=== PATIENT | male | born 1950 | race Caucasian/White ===

== ENCOUNTER 2017-04-26 17:13 | Emergency (ER) | payer OTHER ==
[~2017-04-26] VITALS: Ht 167.6 cm; Wt 62.0 kg
[~2017-04-26 17:13] MED LIST: AMOX1TAB64 PO; ATOR10TA9 PO; HYDR-3342 PO; LACT1CAP24 PO; LISI-167 PO; METF500T4 PO; OXYC5TAB3 PO; SITA50TA PO; TRAM50TA2 PO; UMEC1DIS INH
[2017-04-26] MEDS ORDERED: SODIUM CHLORIDE 0.9% 1,000 ML IV ONE (17:26)
[2017-04-26] MEDS ORDERED: ASPIRIN 81 MG TABLET CHEW PO ONE (17:30)
[2017-04-26] MEDS ORDERED: SODIUM CHLORIDE FLUSH 10ML SYR IVF ONE (17:30)
[2017-04-26] MEDS ORDERED: SODIUM CHLORIDE 0.9% 1,000ML IVBOLUS ONE ×2 (17:30→18:30)
[2017-04-26] MEDS ORDERED: ASPIRIN 81 MG TABLET CHEW ONE (18:02)
[2017-04-26 18:11] LABS: ASPARTATE AMINO TRANSFERASE 16 U/L (15-37); BLOOD UREA NITROGEN 19 mg/dL (7-18)
[2017-04-26 18:16] LABS: IS PT STATUS REG ER OR PRE ER? YES
[2017-04-26 19:24] VITALS: BP 104/59
== END 2017-04-26 19:34 | disposition home or self-care (01) ==
LOC: ED 17:39
DX: I95.2 Hypotension due to drugs (principal); R07.89 Other chest pain; E11.9 Type 2 diabetes mellitus without complications; E78.5 Hyperlipidemia, unspecified; Z90.49 Acquired absence of other specified parts of digestive tract; F17.200 Nicotine dependence, unspecified, uncomplicated
CPT/HCPCS: 36415; 71010; 80053; 83605; 83690; 84484; 85025; 93005; 96360; 96361; 99285; J7030

== ENCOUNTER 2017-05-20 12:49 | Inpatient (IN) | payer OTHER ==
[~2017-05-20] VITALS: Ht 167.6 cm; Wt 64.0 kg
[2017-05-20] MEDS ORDERED: LISI2.5T PO (12:59)
[2017-05-20] MEDS ORDERED: TRAM50TA2 PO (12:59)
[2017-05-20] MEDS ORDERED: SODIUM CHLORIDE 0.9% 1,000ML IVBOLUS ONE ×2 (13:00→15:00)
[2017-05-20] MEDS ORDERED: SODIUM CHLORIDE FLUSH 10ML SYR IVF ONE (13:00)
[2017-05-20 13:24] LABS: BLOOD UREA NITROGEN 14 mg/dL (7-18)
[2017-05-20 13:30] LABS: ASPARTATE AMINO TRANSFERASE 21 U/L (15-37)
[2017-05-20 13:31] LABS: IS PT STATUS REG ER OR PRE ER? YES
[2017-05-20] MEDS ORDERED: SODIUM CHLORIDE 0.9%, 500ML IVBOLUS ONE (14:00)
[2017-05-20] MEDS ORDERED: POLYETHYLENE GLYCOL 17 GM PACKET PO PRN (17:00)
[2017-05-20] MEDS ORDERED: DOCUSATE 100 MG CAPSULE PO PRN (17:00)
[2017-05-20] MEDS ORDERED: LABETALOL 5MG/ML 40ML VIAL IVPush PRN (17:00)
[2017-05-20] MEDS ORDERED: ONDANSETRON 2MG/ML, 2ML IVPush PRN (17:00)
[2017-05-20] MEDS ORDERED: morphine SULFATE 10 MG/ML, 1ML IVPush PRN (17:00)
[2017-05-20] MEDS ORDERED: HYDROcodone/APAP 5/325 TABLET PO PRN (17:00)
[2017-05-20] MEDS ORDERED: BISACODYL 10 MG SUPP PR PRN (17:00)
[2017-05-20] MEDS ORDERED: ACETAMINOPHEN 325 MG TABLET PO PRN (17:00)
[2017-05-20] MEDS ORDERED: UMEC1DIS INH (17:52)
[2017-05-20] MEDS ORDERED: ENOXAPARIN 40 MG/0.4 ML SQ SCH (18:00)
[2017-05-20] MEDS: SODIUM CHLORIDE 0.9% 1,000 ML IV SCH (18:00)
[2017-05-20 18:02] VITALS: BP 94/58
[2017-05-20 19:19] VITALS: BP_SYST 101; BP_SYST 102; BP_SYST 107; BP_DIAS 60; BP_DIAS 64; BP_DIAS 66
[2017-05-20] MEDS ORDERED: NICOTINE 14MG/24 HR PATCH.TD24 TD SCH (20:30)
[2017-05-20] MEDS: metFORMIN 500 MG TABLET PO SCH (21:09)
[2017-05-21 02:07] VITALS: BP_SYST 108; BP_SYST 121; BP_DIAS 68; BP_DIAS 72; BP_DIAS 75
[2017-05-21] MEDS: SODIUM CHLORIDE 0.9% 1,000 ML IV SCH (04:39)
[2017-05-21 06:22] LABS: BLOOD UREA NITROGEN 16 mg/dL (7-18)
[2017-05-21 06:23] LABS: ASPARTATE AMINO TRANSFERASE 15 U/L (15-37)
[2017-05-21 07:39] VITALS: BP_SYST 105; BP_SYST 114; BP_SYST 124; BP_DIAS 70; BP_DIAS 74; BP_DIAS 77
[2017-05-21] MEDS ORDERED: SITAGLIPTIN 50MG TABLET PO SCH (09:00)
[2017-05-21] MEDS: metFORMIN 500 MG TABLET PO SCH (09:39)
== END 2017-05-21 12:43 | disposition home or self-care (01) | DRG 315 ==
LOC: ED 15:41 → EDIP 16:46 → 4EST 17:30
PROVIDERS: ADMIT Internal Medicine; ATTEND Internal Medicine
DX: I95.9 Hypotension, unspecified (principal); R17 Unspecified jaundice; E11.65 Type 2 diabetes mellitus with hyperglycemia; E78.5 Hyperlipidemia, unspecified; I11.9 Hypertensive heart disease without heart failure; D72.829 Elevated white blood cell count, unspecified; Z72.0 Tobacco use; Z79.84 Long term (current) use of oral hypoglycemic drugs; Z90.49 Acquired absence of other specified parts of digestive tract; Z95.0 Presence of cardiac pacemaker; Z98.42 Cataract extraction status, left eye; Z98.41 Cataract extraction status, right eye; T46.4X5A Adverse effect of angiotensin-converting-enzyme inhibitors, initial encounter
CPT/HCPCS: 36415; 71010; 80053; 81003; 82607; 82746; 82962; 83690; 83735; 83880; 84443; 84484; 85025; 85610; 85730; 93005; 93880; 96360; 96361; J1650; J7030; J7040

== ENCOUNTER 2017-11-10 20:43 | Emergency (ER) | payer OTHER ==
[~2017-11-10] VITALS: Ht 167.6 cm; Wt 71.6 kg
[~2017-11-10 20:43] MED LIST changes: +LISI2.5T PO
[2017-11-10 20:48] VITALS: BP 132/71
[2017-11-10 21:50] LABS: ALANINE AMINOTRANSFERASE 19 U/L (12-78); ALBUMIN 3.5 g/dL (3.4-5.0); ANION GAP 7 mmol/L (5-15); CALCIUM 8.8 mg/dL (8.5-10.1); CHLORIDE 109 mmol/L (98-107); CREATININE 0.92 mg/dL (0.7-1.3)
[2017-11-10 21:53] LABS: ALKALINE PHOSPHATASE 84 U/L (45-117); BILIRUBIN,TOTAL 0.5 mg/dL (0.2-1.0); TOTAL PROTEIN 6.9 g/dL (6.4-8.2)
== END 2017-11-11 00:44 | disposition left against medical advice (07) ==
LOC: ED 21:46
DX: R10.11 Right upper quadrant pain (principal)
CPT/HCPCS: 36415; 80053; 83690; 99284

== ENCOUNTER → 2017-12-13 | Outpatient (CLI) | payer OTHER | END | disposition home or self-care (01) | LOC: CFH 09:14 | PROVIDERS: ATTEND Nurse Practitioner Primary Care | DX: N28.1 Cyst of kidney, acquired (principal); I10 Essential (primary) hypertension; E55.9 Vitamin D deficiency, unspecified; M25.512 Pain in left shoulder; M54.9 Dorsalgia, unspecified; J44.0 Chronic obstructive pulmonary disease with (acute) lower respiratory infection; I25.10 Atherosclerotic heart disease of native coronary artery without angina pectoris; R53.83 Other fatigue; D72.829 Elevated white blood cell count, unspecified; R23.4 Changes in skin texture | CPT/HCPCS: 76700 ==

== ENCOUNTER 2018-08-14 21:05 | Observation (INO) | payer OTHER ==
[~2018-08-14] VITALS: Ht 167.6 cm; Wt 66.8 kg
[~2018-08-14 21:05] MED LIST changes: +METF500T17 PO; -METF500T4 PO
[2018-08-14] MEDS ORDERED: ALBU0.63 NEB (21:17)
[2018-08-14] MEDS ORDERED: LISI2.5T PO (21:18)
[2018-08-14 22:20] LABS: BASOPHILS # (AUTO) 0.03 x10^3/uL (0-0.1); BASOPHILS % (AUTO) 0 % (0-1); EOSINOPHILS # (AUTO) 0.53 x10^3/uL (0-0.4); EOSINOPHILS % (AUTO) 4 % (1-7); LYMPHOCYTES # (AUTO) 2.78 x10^3/uL (1-3.4); LYMPHOCYTES % (AUTO) 22 % (22-44); MD NO; MEAN CORPUSCULAR HEMOGLOBIN 31.9 pg (27.5-34.5); MEAN CORPUSCULAR HGB CONC 34.1 g/dL (33.2-36.2); MEAN CORPUSCULAR VOLUME 93.5 fL (81-97); MONOCYTES % (AUTO) 6 % (2-9); NEUTROPHILS # (AUTO) 8.57 x10^3/uL (1.8-6.8); NEUTROPHILS % (AUTO) 67 % (42-75); PLATELET COUNT 274 x10^3/uL (130-400); RED BLOOD COUNT 5.57 x10^6/uL (4.38-5.82); RED CELL DISTRIBUTION WIDTH 13.9 % (9.4-14.8)
[2018-08-14 22:33] LABS: ALBUMIN 3.6 g/dL (3.4-5.0); ANION GAP 8 mmol/L (5-15); CALCIUM 9.1 mg/dL (8.5-10.1); CHLORIDE 109 mmol/L (98-107); CREATININE 0.98 mg/dL (0.7-1.3)
[2018-08-14 22:36] LABS: TROPONIN I 0.039 ng/mL (0.000-0.045)
[2018-08-15] MEDS ORDERED: ASPIRIN 81 MG TABLET CHEW PO ONE (01:00)
[2018-08-15] MEDS ORDERED: ASPIRIN 81 MG TABLET EC ONE (01:20)
[2018-08-15] MEDS ORDERED: hydrALAzine 20 MG/ML, 1ML IVPush PRN (02:00)
[2018-08-15] MEDS ORDERED: ALBUTEROL SULFATE 2.5 MG/3 ML NPPB PRN (02:00)
[2018-08-15] MEDS ORDERED: BISACODYL 10 MG SUPP PR PRN (02:00)
[2018-08-15] MEDS ORDERED: POLYETHYLENE GLYCOL 17 GM PACKET PO PRN (02:00)
[2018-08-15] MEDS ORDERED: LABETALOL 5MG/ML, 20ML IVPush PRN (02:00)
[2018-08-15] MEDS ORDERED: ACETAMINOPHEN 325 MG TABLET PO PRN (02:00)
[2018-08-15] MEDS ORDERED: FLUTICASONE/VILANTEROL 200-25MCG/INH INH SCH (02:00)
[2018-08-15] MEDS ORDERED: NICOTINE 14MG/24 HR PATCH.TD24 TD SCH (02:00)
[2018-08-15] MEDS ORDERED: NITROGLYCERIN 0.4 MG BOTTLE (25 TABS) SL PRN (02:00)
[2018-08-15] MEDS ORDERED: ONDANSETRON 2MG/ML, 2ML IVPush PRN (02:00)
[2018-08-15] MEDS ORDERED: FUROSEMIDE 20 MG/2 ML IV ONE (02:00)
[2018-08-15] MEDS ORDERED: PROMETHAZINE 25 MG/ML, 1ML IM PRN (02:00)
[2018-08-15] MEDS ORDERED: DOCUSATE 100 MG CAPSULE PO PRN (02:00)
[2018-08-15] MEDS ORDERED: ONDANSETRON ODT 4 MG PO PRN (02:00)
[2018-08-15] MEDS ORDERED: morphine SULFATE 10 MG/ML, 1ML IVPush PRN (02:00)
[2018-08-15 02:09] VITALS: BP 146/81
[2018-08-15 02:32] LABS: FREE T4 (FREE THYROXINE) 1.01 ng/dL (0.76-1.46); THYROID STIMULATING HORMONE 1.16 mIU/L (0.358-3.740)
[2018-08-15 02:44] LABS: HEMOGLOBIN A1C 5.9 % (4.2-6.3)
[2018-08-15] MEDS: HEPARIN 5,000 UNITS/ML, 1ML SQ SCH ×2 (03:51→08:15)
[2018-08-15 04:56] LABS: MICROSCOPIC AUTO
[2018-08-15 05:22] LABS: CULTURE INDICATED? NO
[2018-08-15] MEDS ORDERED: ASPIRIN 325 MG TABLET EC PO SCH (06:00)
[2018-08-15 06:27] LABS: TROPONIN I 0.023 ng/mL (0.000-0.045)
[2018-08-15 07:32] VITALS: BP 128/83
[2018-08-15] MEDS: INSULIN LISPRO 100 UNITS/ML, PEN SQ-INSULIN SCH ×2 (08:13→11:00)
[2018-08-15] MEDS ORDERED: LISINOPRIL 5 MG TABLET PO SCH (09:00)
[2018-08-15] MEDS ORDERED: REGADENOSON 0.4 MG/5 ML SYRINGE ONE (10:06)
[2018-08-15 12:46] LABS: TROPONIN I 0.023 ng/mL (0.000-0.045)
[2018-08-15 13:20] VITALS: BP 122/68
[2018-08-15 14:20] LABS: CHOL/HDL RATIO 3.8
[2018-08-15] MEDS ORDERED: ASPI-515 PO (15:24)
[2018-08-15] MEDS ORDERED: ATOR20TA9 PO (15:24)
[2018-08-15] MEDS ORDERED: CARV3.1212 PO (15:24)
[2018-08-15] MEDS ORDERED: CARVEDILOL 3.125 MG TABLET PO SCH (18:00)
[2018-08-15] MEDS ORDERED: ATORVASTATIN 20 MG TABLET PO SCH (21:00)
== END 2018-08-15 16:21 | disposition home or self-care (01) ==
LOC: ED 23:59 → INTOOBSV 08-15 00:58 → EDIP 08-15 00:58 → 5SO 08-15 01:59 → DCLOUNGE 08-15 16:05
PROVIDERS: ADMIT Internal Medicine; ATTEND Internal Medicine
DX: I11.0 Hypertensive heart disease with heart failure (principal); I50.33 Acute on chronic diastolic (congestive) heart failure; I24.8 Other forms of acute ischemic heart disease; E78.5 Hyperlipidemia, unspecified; E11.9 Type 2 diabetes mellitus without complications; J44.9 Chronic obstructive pulmonary disease, unspecified; I45.9 Conduction disorder, unspecified; F17.210 Nicotine dependence, cigarettes, uncomplicated; Z79.82 Long term (current) use of aspirin; Z95.0 Presence of cardiac pacemaker; Z86.73 Personal history of transient ischemic attack (TIA), and cerebral infarction without residual deficits; Z90.49 Acquired absence of other specified parts of digestive tract; Z98.42 Cataract extraction status, left eye; Z98.41 Cataract extraction status, right eye
CPT/HCPCS: 36415; 71045; 78452; 80048; 80061; 81001; 82040; 82962; 83036; 83735; 83880; 84439; 84443; 84484; 85025; 93005; 93017; 96372; 96374; 97161; 99285; A9502; C8929; C9898; G0378; G8978; G8979; G8980; J1644; J1940; J2785; Q9957

== ENCOUNTER 2018-08-27 07:59 | Observation (INO) | payer OTHER ==
[~2018-08-27] VITALS: Ht 167.6 cm; Wt 66.7 kg
[~2018-08-27 07:59] MED LIST changes: +ALBU0.63 NEB; +ASPI-515 PO; +ATOR20TA9 PO; +CARV3.1212 PO
[2018-08-27] MEDS ORDERED: SODIUM CHLORIDE 0.9% 1,000 ML IV ONE (08:07)
[2018-08-27 08:19] VITALS: BP 120/83
[2018-08-27] MEDS ORDERED: DIPHENHYDRAMINE 50 MG/ML, 1ML IVPush ONE (08:30)
[2018-08-27] MEDS ORDERED: UMEC1DIS INH (08:35)
[2018-08-27] MEDS ORDERED: ERGO500017 PO (08:35)
[2018-08-27] MEDS ORDERED: ISOS30TA8 PO (08:35)
[2018-08-27] MEDS ORDERED: ATOR10TA9 PO (08:35)
[2018-08-27] MEDS ORDERED: CARV3.122 PO (08:35)
[2018-08-27] MEDS ORDERED: NITR0.4T28 SL (08:36)
[2018-08-27] MEDS ORDERED: ASPI-621 PO (08:37)
[2018-08-27 08:44] LABS: BASOPHILS # (AUTO) 0.01 x10^3/uL (0-0.1); BASOPHILS % (AUTO) 0 % (0-1); EOSINOPHILS # (AUTO) 0.54 x10^3/uL (0-0.4); EOSINOPHILS % (AUTO) 4 % (1-7); LYMPHOCYTES # (AUTO) 2.19 x10^3/uL (1-3.4); LYMPHOCYTES % (AUTO) 16 % (22-44); MD NO; MEAN CORPUSCULAR HEMOGLOBIN 31.3 pg (27.5-34.5); MEAN CORPUSCULAR HGB CONC 34.1 g/dL (33.2-36.2); MEAN CORPUSCULAR VOLUME 91.8 fL (81-97); MEAN PLATELET VOLUME 7.8 fL (7.4-10.4); MONOCYTES # (AUTO) 0.86 x10^3/uL (0.2-0.8); MONOCYTES % (AUTO) 6 % (2-9); NEUTROPHILS # (AUTO) 10.45 x10^3/uL (1.8-6.8); NEUTROPHILS % (AUTO) 74 % (42-75); PLATELET COUNT 279 x10^3/uL (130-400); RED BLOOD COUNT 5.83 x10^6/uL (4.38-5.82); RED CELL DISTRIBUTION WIDTH 13.4 % (9.4-14.8)
[2018-08-27 08:55] LABS: ANION GAP 8 mmol/L (5-15); CALCIUM 8.8 mg/dL (8.5-10.1); CHLORIDE 111 mmol/L (98-107); CREATININE 0.86 mg/dL (0.7-1.3)
[2018-08-27] MEDS ORDERED: PLEASE ENTER HEIGHT AND WEIGHT MC SCH (09:00)
[2018-08-27] MEDS ORDERED: FENTANYL PF 100 MCG/2ML ONE (09:01)
[2018-08-27] MEDS ORDERED: LIDOCAINE-MPF 1%, 5ML ONE (09:01)
[2018-08-27] MEDS ORDERED: HEPARIN 1,000 UNITS/ML, 10ML ONE (09:01)
[2018-08-27] MEDS ORDERED: VERAPAMIL 2.5 MG/ML, 2ML ONE (09:01)
[2018-08-27] MEDS ORDERED: NITROGLYCERIN 5 MG/ML, 10ML ONE (09:01)
[2018-08-27] MEDS ORDERED: MIDAZOLAM 1 MG/ML, 5ML ONE (09:01)
[2018-08-27] MEDS ORDERED: TICAGRELOR 90 MG TABLET ONE (09:58)
[2018-08-27] MEDS ORDERED: BIVALIRUDIN 250 MG ONE (09:58)
[2018-08-27] MEDS: ISOSORBIDE MONONITRATE ER 30 MG TABLET PO SCH (11:00)
[2018-08-27] MEDS ORDERED: ERGOCALCIFEROL 50,000 UNIT CAPSULE PO SCH (11:00)
[2018-08-27] MEDS: ASPIRIN 81 MG TABLET EC PO SCH (11:00)
[2018-08-27 13:05] VITALS: BP 148/77
[2018-08-27] MEDS ORDERED: ACETAMINOPHEN 500 MG TABLET PO PRN (13:30)
[2018-08-27] MEDS: NICOTINE 14MG/24 HR PATCH.TD24 TD SCH (14:00)
[2018-08-27 20:06] VITALS: BP 150/73
[2018-08-27] MEDS ORDERED: ATORVASTATIN 10 MG TABLET PO SCH (21:00)
[2018-08-27] MEDS: metFORMIN 500 MG TABLET PO SCH ×2 (21:00→22:12)
[2018-08-27] MEDS: CARVEDILOL 3.125 MG TABLET PO SCH (21:52)
[2018-08-28 02:02] VITALS: BP 128/73
[2018-08-28 06:33] VITALS: BP 124/74
[2018-08-28] MEDS: ASPIRIN 81 MG TABLET EC PO SCH (08:05)
[2018-08-28] MEDS: CARVEDILOL 3.125 MG TABLET PO SCH (08:05)
[2018-08-28] MEDS: ISOSORBIDE MONONITRATE ER 30 MG TABLET PO SCH (08:06)
[2018-08-28] MEDS: NICOTINE 14MG/24 HR PATCH.TD24 TD SCH (08:09)
== END 2018-08-28 12:17 | disposition home or self-care (01) ==
LOC: CACL 07:59 → 5SO 12:44 → CACL 08-28 10:26 → DCLOUNGE 08-28 12:05
PROVIDERS: ADMIT Internal Medicine Cardiovascular Disease; ATTEND Internal Medicine Cardiovascular Disease
DX: I20.9 Angina pectoris, unspecified (principal); I10 Essential (primary) hypertension; J44.9 Chronic obstructive pulmonary disease, unspecified; E11.9 Type 2 diabetes mellitus without complications; E78.2 Mixed hyperlipidemia; Z95.0 Presence of cardiac pacemaker; Z23 Encounter for immunization
CPT/HCPCS: 36415; 80048; 85025; 90656; 93458; 99156; C1769; C1894; G0008; G0378; J1644; J2250; J3010; Q9967; 90471; J0583

== ENCOUNTER → 2018-10-18 | Outpatient (CLI) | payer OTHER ==
[~2018-10-18] MED LIST changes: +ASPI81TA45 PO; +ATOR20TA37 PO; -ATOR20TA9 PO; +CARV3.122 PO; +ERGO500017 PO; +ISOS30TA8 PO; +NITR0.4T28 SL
== END | disposition home or self-care (01) ==
LOC: CARD 10:02
PROVIDERS: ATTEND Nurse Practitioner Primary Care
DX: J44.0 Chronic obstructive pulmonary disease with (acute) lower respiratory infection (principal); Z72.0 Tobacco use
CPT/HCPCS: 94060; 94726; 94729